=== PATIENT | female | born 1945 | race Caucasian/White ===

== ENCOUNTER 2020-09-07 13:55 | Outpatient (CLI) | payer MEDICARE ==
[2020-09-07 16:56] LABS: Hemoglobin 13.6 g/dL (12.0-15.5); Mean Corpuscular HGB CONC 32.1 g/dL (32.0-36.0); Mean Corpuscular Volume 93.4 fl (81.6-98.3); Mean Platelet Volume 10.2 fl (7.4-10.4); Platelet Count 290 10x3/uL (150-450); RBC Distribution Width 13.4 % (11.5-14.5); Red Blood Cell (RBC) Count 4.54 10x6/uL (3.90-5.03); White Blood Cell (WBC) Count 8.1 10x3/uL (3.5-10.5)
[2020-09-07 17:04] LABS: Anion Gap 16 mmol/L (10-20); BUN (Urea Nitrogen) 10 mg/dL (9.8-20.1); Calc. Creatinine Clearance 0 mL/min (70-130); Calcium 9.6 mg/dL (7.8-10.44); Carbon Dioxide 26 mmol/L (23-31); Chloride 103 mmol/L (98-107); Glucose 103 mg/dL (83-110); Potassium 4.5 mmol/L (3.5-5.1); Sodium 140 mmol/L (136-145)
[2020-09-07 17:10] LABS: INR-International Normal Ratio 0.9; Prothrombin Time 9.9 sec (9.5-12.1)
[2020-09-08 01:56] LABS: SARS-CoV-2 PCR by NAA Not Detected (NotDetected)
== END 2020-09-07 13:56 | disposition home or self-care (01) ==
LOC: LABBT 13:55
PROVIDERS: ATTEND Urology
DX: Z01.818 Encounter for other preprocedural examination (principal); N20.1 Calculus of ureter; N30.00 Acute cystitis without hematuria; Z20.822 Contact with and (suspected) exposure to COVID-19
CPT/HCPCS: 80048; 85027; 85610; 85730; 93005; U0003; U0005; 87635; 93010

== ENCOUNTER 2020-09-08 08:57 | Day surgery (SDC) | payer MEDICARE ==
[2020-09-07 14:07] VITALS: BMI 25.9
--- NOTE | 2020-09-08 09:33 | RAD ---
EXAM: Single view of the abdomen HISTORY: Preoperative radiograph for a right ureteral calcification COMPARISON: CT abdomen/pelvis 09/03/2019 FINDINGS: Single view of the abdomen shows a nonspecific, nonobstructive bowel gas pattern. There is a 4 mm calcification to the right of the L4 vertebral body representing the right ureteral calcification seen on prior CT. There is scoliotic curvature the spine. IMPRESSION: Right ureteral calcification
[2020-09-08] MEDS ORDERED: PHENYLEPHRINE-NS 100 MCG/ML 10 ML SYRINGE ONE (09:50)
[2020-09-08] MEDS ORDERED: Glycopyrrolate 0.2 MG/ML 5 ML SYRINGE ONE (09:50)
[2020-09-08] MEDS ORDERED: Dexamethasone 20 MG/5 ML VIAL ONE (09:50)
[2020-09-08] MEDS ORDERED: Lidocaine 1% PF 5 ML VIAL ONE (09:50)
[2020-09-08] MEDS ORDERED: Ondansetron PF 4 MG/2 ML Vial ONE (09:50)
[2020-09-08] MEDS ORDERED: ePHEDrine 50 MG/ML VIAL ONE (09:50)
[2020-09-08] MEDS ORDERED: Rocuronium Bromide 10 MG/ML (10ML VIAL) ONE (09:50)
[2020-09-08] MEDS ORDERED: PROPOFOL 200 MG/20 ML VIAL ONE (09:50)
[2020-09-08] MEDS ORDERED: cefTRIAXone\\ROCEPHIN 2 GM VIAL ONE (09:59)
[2020-09-08] MEDS ORDERED: Sodium Chloride 0.9% 100 ML ONE (09:59)
[2020-09-08] MEDS ORDERED: Fentanyl 100 MCG/2 ML VIAL ONE (12:18)
[2020-09-08] MEDS ORDERED: Iothalamate Meglumine 60% 50 ML VIAL FS ONE (12:22)
[2020-09-08] MEDS ORDERED: Oxybutynin 5 MG TAB ONE (14:13)
[2020-09-08] MEDS ORDERED: Phenazopyridine HCl 100 MG TAB ONE (14:13)
--- NOTE | 2020-09-08 14:24 | RAD ---
M: Right retrograde Polygram: HISTORY: Right flank pain, right mid ureteral calculus, right stent placement Initial plater printed circuit board panels images demonstrate a persistent calculus at approximately the L4 vertebral level. Multi ple manipulation wires are placed. Right ureteral stent is placed at the end of the procedure. IMPRESSION: Right ureteral calculus. Right ureteral stent placed at the end of the procedure following manipulati on..
--- NOTE | 2020-09-08 18:07 | OP ---
DATE OF PROCEDURE: 09/08/2020 PREOPERATIVE DIAGNOSES: 1. A 75-year-old pleasant female with right flank pain, due to 5 mm L3 ureteral calculi with hydronephrosis. 2. Cholelithiasis. POSTOPERATIVE DIAGNOSES: 1. A 75-year-old pleasant female with right flank pain, due to 5 mm L3 ureteral calculi with hydronephrosis. 2. Cholelithiasis. PROCEDURES PERFORMED: Cystoscopy, right retrograde, balloon dilation of the distal intramural ureter, ureteroscopy, laser lithotripsy, 6 x 26 double-J ureteral stent with distal tail in situ. INTRAOPERATIVE FINDINGS: 1. Right obstructing ureteral calculi at the level of L3. 2. 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 Right UO lateral orifice is the true orifice to the right collecting system. Retrograde pyelogram demonstrating no evidence of complete R duplicated ureter. ANESTHESIA: General. COMPLICATIONS: None apparent. SPECIMEN: None. INDICATIONS FOR PROCEDURE AND HISTORY: Ms. Mcgregor is a pleasant 75-year-old female, who presented to the emergency room with 10/10 on the pain scale with L3, 5 mm ureteral stone, Hounsfield unit 970. Stone is clearly visible on fluoroscopy preop KUB. Due to persistent discomfort, she desired to proceed with definitive treatment. She denies prior history of kidney stone, pyelonephritis. Risks and complications of procedure were discussed with her in detail including, but not limited to, bleeding; pain; infection; injury to adjacent organs; ureteral, renal, or kidney injury. All questions were answered to her satisfaction and she desired to proceed. DESCRIPTION OF PROCEDURE: After an informed consent was signed, the patient was taken to the operating room, placed in a dorsal lithotomy position with the genital area prepped and draped in the usual surgical sterile fashion. A 21-[place] cystoscope was utilized for cystoscopy. A 5-[place] open-ended catheter was utilized to intubate the right UO and a gentle retrograde pyelogram was performed, the distal ureter was opacified, we did not use aggressive retrograde, as I did not want the stone to migrate. The 0.035 Sensor wire was placed into the right collecting system, which coiled in the renal pelvis and a [employer] 15-[place] 6-cm balloon dilator was utilized to dilate the intramural ureter. Subsequently, we gently passed a 12 x 14 navigator to the level of the stone without significant issues. A flexible ureteroscope was then advanced over the navigator. Despite having the navigator, it was somewhat difficult to engage the stone, due to the angle of the engagement of the stone. However, with steadfast ureteroscopy, we were able to visualize the stone and using 273-micron laser fiber straight tip at 1.2 joules, we laser lithotripsied the stone. It was challenging to treat because the stone tend to migrate more proximally, requiring wire assist to engage to the level of the stone. However, we successfully laser lithotripsied the stone into multiple tiny fragments, which she should pass without significant issues. The basket extraction was not performed, as the stone nidus region was difficult to engage despite having the navigator. With successful treatment of the stone, we placed a 6 x 26 double-J ureteral stent with distal tail in situ. After the stent was placed, I was able to visualize a second right UO just medial to the true right ureteral orifice. To rule out a complete duplicated system, we intubated the second UO on the right, and a retrograde pyelogram performed, however, this was blind ending at the level of S4. 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 There was only one left UO visualized on cystoscopy, a 6 x 26 double-J ureteral stent, and all wires removed and she tolerated the procedure well. As she has endoscopic clearance, she will follow up with me next for cysto, stent pull under local. Job ID: [id number] [id number]
== END 2020-09-08 15:35 | disposition home or self-care (01) ==
LOC: SDC 08:57
PROVIDERS: ATTEND Urology
PROC: 0TC68ZZ Extirpation of Matter from Right Ureter, Via Natural or Artificial Opening Endoscopic (ICD-10-PCS; principal; 2020-09-08)
PROC: 0T768DZ Dilation of Right Ureter with Intraluminal Device, Via Natural or Artificial Opening Endoscopic (ICD-10-PCS; 2020-09-08)
DX: N13.2 Hydronephrosis with renal and ureteral calculous obstruction (principal); Q62.5 Duplication of ureter; K80.20 Calculus of gallbladder without cholecystitis without obstruction; N30.00 Acute cystitis without hematuria; F41.9 Anxiety disorder, unspecified; Z79.2 Long term (current) use of antibiotics; Z79.899 Other long term (current) drug therapy
CPT/HCPCS: 74018; 74420; J0696; J1100; J2405; J2704; J3010; J3490

== ENCOUNTER 2020-11-10 12:42 | Outpatient (CLI) | payer MEDICARE ==
[2020-11-10 14:22] LABS: #Eosinphils 0.1 10x3/uL (0.0-0.5); #Monocytes 0.3 10x3/uL (0.0-1.1); #Neutrophils 2.1 10x3/uL (1.5-8.4); %Basophils 0.7 % (0.0-2.0); %Lymphocytes 42.7 % (18.0-47.0); %Monocytes 7.6 % (0.0-10.0); %Neutrophils 46.6 % (40.0-75.0); Mean Corpuscular Hemoglobin 29.8 pg (27.0-33.0); Mean Platelet Volume 9.9 fl (7.4-10.4); Platelet Count 349 10x3/uL (150-450); RBC Distribution Width 12.9 % (11.5-14.5); White Blood Cell (WBC) Count 4.5 10x3/uL (3.5-10.5)
[2020-11-10 14:37] LABS: ALT (SGPT) 18 U/L (8-55); AST (SGOT) 18 U/L (5-34); Albumin 4.5 g/dL (3.4-4.8); Alkaline Phosphatase 91 U/L (40-110); Anion Gap 14 mmol/L (10-20); BUN (Urea Nitrogen) 7 mg/dL (9.8-20.1); Bilirubin, Direct 0.1 mg/dL (0.1-0.3); Bilirubin, Total 0.3 mg/dL (0.2-1.2); Calc. Creatinine Clearance 0 mL/min (70-130); Calcium 9.3 mg/dL (7.8-10.44); Carbon Dioxide 25 mmol/L (23-31); Chloride 105 mmol/L (98-107); Globulin 2.6 g/dL (2.4-3.5); Glucose 89 mg/dL (83-110); Potassium 4.4 mmol/L (3.5-5.1); Protein, Total 7.1 g/dL (5.8-8.1); Sodium 140 mmol/L (136-145)
[2020-11-11 01:00] LABS: SARS-CoV-2 PCR by NAA Not Detected (NotDetected)
== END 2020-11-10 12:43 | disposition home or self-care (01) ==
LOC: LABBT 12:42
PROVIDERS: ATTEND Surgery
DX: Z01.818 Encounter for other preprocedural examination (principal); K80.20 Calculus of gallbladder without cholecystitis without obstruction; Z20.822 Contact with and (suspected) exposure to COVID-19
CPT/HCPCS: 80053; 80076; 85025; 93005; U0003; U0005; 87635; 93010

== ENCOUNTER 2020-11-15 05:54 | Day surgery (SDC) | payer MEDICARE ==
[2020-11-12 11:44] VITALS: BMI 24.6
[2020-11-15] MEDS ORDERED: cefOXitin Sodium/Dextrose 2 GM/50 ML BAG ONE (06:15)
[2020-11-15] MEDS ORDERED: Lidocaine 2% Jelly 5 ML TUBE ONE (06:47)
[2020-11-15] MEDS ORDERED: Fentanyl 100 MCG/2 ML VIAL ONE (06:47)
[2020-11-15] MEDS ORDERED: Lidocaine 1% w/Epinephrine 1:100K 20 ML VIAL ONE (07:02)
[2020-11-15] MEDS ORDERED: Bupivacaine 0.25% HCL 30 ML VIAL ONE (07:02)
[2020-11-15] MEDS ORDERED: Scopolamine 1.5 mg/72 hour Patch ONE (07:05)
[2020-11-15] MEDS ORDERED: Midazolam HCl 2 mg/2 ml Vial ONE (07:10)
[2020-11-15] MEDS ORDERED: Dexamethasone 20 MG/5 ML VIAL ONE (07:33)
[2020-11-15] MEDS ORDERED: Ketorolac Tromethamine 30 MG/ML VIAL ONE (07:33)
[2020-11-15] MEDS ORDERED: PROPOFOL 200 MG/20 ML VIAL ONE (07:33)
[2020-11-15] MEDS ORDERED: Rocuronium Bromide 10 MG/ML (10ML VIAL) ONE (07:33)
[2020-11-15] MEDS ORDERED: Ondansetron PF 4 MG/2 ML Vial ONE (07:33)
[2020-11-15] MEDS ORDERED: Lidocaine 1% PF 5 ML VIAL ONE (07:33)
[2020-11-15] MEDS ORDERED: Glycopyrrolate 0.2 MG/ML 5 ML SYRINGE ONE (07:33)
[2020-11-15] MEDS ORDERED: SUGAMMADEX SODIUM 200 MG/2 ML VIAL ONE (08:05)
[2020-11-15] MEDS ORDERED: HYDROcodone/Acetaminophen 5/325 mg Tablet ONE (09:22)
== END 2020-11-15 10:11 | disposition home or self-care (01) ==
LOC: SDC 05:54
PROVIDERS: ATTEND Surgery
PROC: 0FT44ZZ Resection of Gallbladder, Percutaneous Endoscopic Approach (ICD-10-PCS; principal; 2020-11-15)
DX: K80.10 Calculus of gallbladder with chronic cholecystitis without obstruction (principal); Z79.899 Other long term (current) drug therapy
CPT/HCPCS: 88304; J0694; J1100; J1885; J2250; J2405; J2704; J3010; S0020

== ENCOUNTER 2020-12-13 09:29 | Outpatient (CLI) | payer MEDICARE ==
[~2020-12-13 09:29] MED LIST: Iopamidol 300 61% 100 ML VIAL FS ONE
== END 2020-12-13 09:30 | disposition home or self-care (01) ==
LOC: RAD 09:29
PROVIDERS: ATTEND Urology
DX: Q62.5 Duplication of ureter (principal)
CPT/HCPCS: 74410; Q9967